=== PATIENT | female | born 1965 | race Caucasian/White ===

== ENCOUNTER → 2018-04-19 | Outpatient (REF) | payer OTHER | LOC: M LAB REF 17:34 | DX: J02.9 Acute pharyngitis, unspecified (principal) ==

== ENCOUNTER → 2018-10-13 | Outpatient (REF) | payer OTHER | LOC: M LAB LCGH 12:55 | PROVIDERS: ATTEND Nurse Practitioner Adult Health | DX: Z12.4 Encounter for screening for malignant neoplasm of cervix (principal) ==

== ENCOUNTER → 2020-03-10 | Outpatient (CLI) | payer SELFPAY | LOC: M LABSMTC 14:00 | PROVIDERS: ATTEND Pediatrics | DX: Z20.828 Contact with and (suspected) exposure to other viral communicable diseases (principal) ==

== ENCOUNTER → 2021-03-13 | Outpatient (CLI) | payer OTHER, SELFPAY ==
--- NOTE | 2021-03-13 13:42 | REP ---
INDICATION: RT SHOULDER IMPINGEMENT. COMPARISON: None. TECHNIQUE: Neutral, internal rotation, external rotation, axillary and Y-view of the right shoulder. FINDINGS: Osseous structures are intact and relatively age-appropriate. There is very subtle spurring at the acromioclavicular joint. The glenohumeral joint appears normal. There is no evidence for acute fracture or dislocation. The subacromial space is normal. No periarticular calcifications or loose bodies are identified. IMPRESSION: Mild age-related changes suggested. <Electronically signed by Jose Daniel Reno > 03/13/21 [id number]
== END ==
LOC: M SOG 08:39
PROVIDERS: ATTEND Orthopaedic Surgery Sports Medicine
DX: M77.8 Other enthesopathies, not elsewhere classified (principal)

== ENCOUNTER 2021-04-30 08:29 | Outpatient (RCR) | payer OTHER | END 2021-05-01 | LOC: M PT 08:29 | PROVIDERS: ATTEND Orthopaedic Surgery Sports Medicine | DX: M75.01 Adhesive capsulitis of right shoulder (principal) ==

== ENCOUNTER 2021-05-22 09:15 | Outpatient (RCR) | payer OTHER | END 2021-06-01 | LOC: M PT 09:15 | PROVIDERS: ATTEND Orthopaedic Surgery Sports Medicine | DX: M75.01 Adhesive capsulitis of right shoulder (principal) ==

== ENCOUNTER 2021-06-28 09:15 | Outpatient (RCR) | payer OTHER | END 2021-07-02 | LOC: M PT 09:15 | PROVIDERS: ATTEND Orthopaedic Surgery Sports Medicine | DX: M75.01 Adhesive capsulitis of right shoulder (principal) ==

== ENCOUNTER → 2021-11-30 | Outpatient (REF) | LOC: M EMP 09:36 | PROVIDERS: ATTEND Family Medicine | DX: Z11.52 Encounter for screening for COVID-19 (principal) ==

== ENCOUNTER → 2022-01-11 | Outpatient (CLI) | payer OTHER | LOC: M PLARAD 08:27 | DX: I67.1 Cerebral aneurysm, nonruptured (principal) ==

== ENCOUNTER → 2022-04-30 | Outpatient (REF) ==
[2022-04-30 13:23] LABS: RSV AMPLIFICATION POSITIVE (NEGATIVE)
== END ==
LOC: M LABSMTC 09:50
PROVIDERS: ATTEND Family Medicine
DX: Z00.00 Encounter for general adult medical examination without abnormal findings (principal)

== ENCOUNTER → 2022-06-10 | Outpatient (REF) ==
[2022-06-10 13:35] LABS: RSV AMPLIFICATION NEGATIVE (NEGATIVE)
== END ==
LOC: M LABSMTC 10:12
PROVIDERS: ATTEND Family Medicine
DX: Z11.52 Encounter for screening for COVID-19 (principal)

== ENCOUNTER → 2022-09-13 | Outpatient (CLI) | payer OTHER ==
[2022-09-13 09:03] LABS: APPEARANCE, URINE CLEAR (CLEAR); BACTERIA, URINE AUTO NEGATIVE (NEGATIVE); BILIRUBIN, URINE AUTO NEGATIVE (NEGATIVE); BLOOD, URINE BLOOD NEGATIVE (NEGATIVE); COLOR, URINE YELLOW (YELLOW); GLUCOSE, URINE (UA) AUTO NEGATIVE (NEGATIVE); KETONE, URINE AUTO NEGATIVE (NEGATIVE); LEUKOCYTE ESTERASE, URINE AUTO NEGATIVE (NEGATIVE); MUCUS, URINE SMALL (NEGATIVE); NITRITE, URINE AUTO NEGATIVE (NEGATIVE); PROTEIN, URINE AUTO NEGATIVE (NEGATIVE); RBC, URINE AUTO 1 /HPF (0-3); SQUAMOUS EPITHELIAL CELL UR AU 0 /HPF (0-6); UROBILINOGEN, URINE AUTO 0.2 mg/dL (0.0-2.0); WBC, URINE AUTO 0 /HPF (0-3)
== END ==
LOC: M RAD 07:56
PROVIDERS: ATTEND General Practice
DX: R10.9 Unspecified abdominal pain (principal)

== ENCOUNTER → 2022-09-19 | Outpatient (CLI) | payer OTHER | LOC: M PLAIMG 09:13 | PROVIDERS: ATTEND General Practice | DX: R10.9 Unspecified abdominal pain (principal); K57.90 Diverticulosis of intestine, part unspecified, without perforation or abscess without bleeding; K42.9 Umbilical hernia without obstruction or gangrene ==

== ENCOUNTER 2022-09-24 12:40 | Outpatient (RCR) | payer OTHER | END 2022-09-29 | LOC: M PT 12:40 | PROVIDERS: ATTEND General Practice | DX: M54.50 Low back pain, unspecified (principal) ==

== ENCOUNTER 2022-10-22 09:56 | Outpatient (RCR) | payer OTHER | END 2022-10-30 | LOC: M PT 09:56 | PROVIDERS: ATTEND General Practice | DX: M54.50 Low back pain, unspecified (principal) ==